=== PATIENT | female | born 1990 | race Caucasian/White ===

== ENCOUNTER 2018-01-21 21:45 | Inpatient (IN) | payer OTHER ==
[~2018-01-21] VITALS: Ht 170.2 cm; Wt 95.0 kg
[2018-01-21 22:37] LABS: CULTURE INDICATED? NO; MICROSCOPIC INDICATED
[2018-01-21] MEDS ORDERED: OXYTOCIN 30U/ 0.9% NaCL 500ML 500 ML IV SCH (22:44)
[2018-01-21] MEDS ORDERED: LACTATED RINGERS 1,000 ML IV SCH ×2 (22:44→23:00)
[2018-01-21] MEDS ORDERED: SODIUM CITRATE/CITRIC ACID 30 ML UDC ONE (22:50)
[2018-01-21] MEDS ORDERED: METOCLOPRAMIDE 5 MG/ML, 2ML ONE (22:50)
[2018-01-21] MEDS ORDERED: OXYTOCIN 30U/ 0.9% NaCL 500ML 500 ML ONE (22:50)
[2018-01-21] MEDS ORDERED: NEWBORN KIT ONE (22:50)
[2018-01-21] MEDS ORDERED: LACTATED RINGERS 1,000 ML IVBOLUS ONE (23:00)
[2018-01-21] MEDS ORDERED: METOCLOPRAMIDE 5 MG/ML, 2ML IV ONE (23:00)
[2018-01-21] MEDS ORDERED: SODIUM CITRATE/CITRIC ACID 30 ML UDC PO ONE (23:00)
[2018-01-21 23:13] LABS: BASOPHILS # (AUTO) 0.02 x10^3/uL (0-0.1); BASOPHILS % (AUTO) 0 % (0-1); EOSINOPHILS # (AUTO) 0.13 x10^3/uL (0-0.4); EOSINOPHILS % (AUTO) 1 % (1-7); LYMPHOCYTES % (AUTO) 30 % (22-44); MD NO; MEAN CORPUSCULAR HGB CONC 34.4 g/dL (32.4-35.8); MEAN CORPUSCULAR VOLUME 90.3 fL (80-100); MEAN PLATELET VOLUME 11.2 fL (7.4-10.4); MONOCYTES % (AUTO) 5 % (2-9); NEUTROPHILS # (AUTO) 5.89 x10^3/uL (1.8-6.8); NEUTROPHILS % (AUTO) 63 % (42-75); PLATELET COUNT 171 x10^3/uL (130-400); RED BLOOD COUNT 3.89 x10^6/uL (3.82-5.3); RED CELL DISTRIBUTION WIDTH 15.4 % (9.6-15.2)
[2018-01-21 23:17] VITALS: BP 143/100
[2018-01-21 23:25] LABS: ALBUMIN 2.7 g/dL (3.4-5.0); ANION GAP 9 mmol/L (5-15); CALCIUM 8.4 mg/dL (8.5-10.1); CHLORIDE 110 mmol/L (98-107)
[2018-01-21] MEDS ORDERED: OXYTOCIN 10 UNITS/ML, 1ML ONE (23:26)
[2018-01-21] MEDS ORDERED: ONDANSETRON 2MG/ML, 2ML ONE (23:26)
[2018-01-21] MEDS ORDERED: CEFAZOLIN 1,000 MG ONE (23:26)
[2018-01-21] MEDS ORDERED: HYDROmorphone 2 MG/ML, 1ML ONE (23:27)
[2018-01-21] MEDS ORDERED: FENTANYL PF 100 MCG/2ML ONE (23:27)
[2018-01-21 23:30] LABS: ALANINE AMINOTRANSFERASE 18 U/L (12-78); ALKALINE PHOSPHATASE 145 U/L (45-117); BILIRUBIN,TOTAL 0.4 mg/dL (0.2-1.0); CREATININE 0.73 mg/dL (0.55-1.02); TOTAL PROTEIN 6.6 g/dL (6.4-8.2)
[2018-01-21 23:32] LABS: BILIRUBIN, DIRECT < 0.1 mg/dL (0.1-0.2)
[2018-01-22] MEDS: LACTATED RINGERS 1,000 ML IV SCH ×6 (00:54→20:54)
[2018-01-22] MEDS: OXYTOCIN 30U/ 0.9% NaCL 500ML 500 ML IV SCH ×3 (00:54→20:54)
[2018-01-22] MEDS ORDERED: MISOPROSTOL 200 MCG TABLET PR PRN (01:00)
[2018-01-22] MEDS ORDERED: BISACODYL 10 MG SUPP PR PRN (01:00)
[2018-01-22] MEDS ORDERED: morphine SULFATE 10 MG/ML, 1ML IVPush PRN ×2 (01:00)
[2018-01-22] MEDS ORDERED: CALCIUM CARBONATE 500 MG TAB.CHEW PO PRN (01:00)
[2018-01-22] MEDS ORDERED: ONDANSETRON 2MG/ML, 2ML IV PRN (01:00)
[2018-01-22] MEDS ORDERED: CARBOPROST TROMETHAMINE 250 MCG/ML, 1ML IM PRN (01:00)
[2018-01-22] MEDS ORDERED: ACETAMINOPHEN 325 MG TABLET PO PRN (01:00)
[2018-01-22] MEDS ORDERED: OXYcodone/APAP 5/325MG TABLET ONE (02:06)
[2018-01-22] MEDS ORDERED: IBUPROFEN 600 MG TABLET ONE (02:07)
[2018-01-22] MEDS: OXYcodone/APAP 5/325MG TABLET PO PRN ×5 (02:08→17:00)
[2018-01-22] MEDS: IBUPROFEN 600 MG TABLET PO PRN ×4 (02:08→19:58)
[2018-01-22 02:30] VITALS: BP 149/88
[2018-01-22 05:15] VITALS: BP 144/94
[2018-01-22] MEDS: SIMETHICONE 80 MG CHEW TAB PO PRN ×2 (05:17→19:57)
[2018-01-22] MEDS: DOCUSATE 100 MG CAPSULE PO PRN (07:40)
[2018-01-22 08:00] VITALS: BP 149/103
[2018-01-22] MEDS: PRENATAL VIT/IRON/FA 1 EACH TABLET PO SCH (09:00)
[2018-01-22 09:05] LABS: BASOPHILS # (AUTO) 0.03 x10^3/uL (0-0.1); BASOPHILS % (AUTO) 0 % (0-1); EOSINOPHILS # (AUTO) 0.03 x10^3/uL (0-0.4); EOSINOPHILS % (AUTO) 0 % (1-7); LYMPHOCYTES # (AUTO) 1.43 x10^3/uL (1-3.4); LYMPHOCYTES % (AUTO) 17 % (22-44); MD NO; MEAN CORPUSCULAR HEMOGLOBIN 30.4 pg (27.0-34.8); MEAN CORPUSCULAR HGB CONC 33.9 g/dL (32.4-35.8); MEAN CORPUSCULAR VOLUME 89.7 fL (80-100); MEAN PLATELET VOLUME 10.6 fL (7.4-10.4); MONOCYTES % (AUTO) 4 % (2-9); NEUTROPHILS # (AUTO) 6.72 x10^3/uL (1.8-6.8); NEUTROPHILS % (AUTO) 79 % (42-75); PLATELET COUNT 144 x10^3/uL (130-400); RED BLOOD COUNT 3.43 x10^6/uL (3.82-5.3)
[2018-01-22 12:00] VITALS: BP 131/88
[2018-01-22 16:00] VITALS: BP 130/89
[2018-01-22 19:45] VITALS: BP 134/87
[2018-01-22] MEDS: OXYcodone/APAP 10/325MG TABLET PO PRN (21:21)
[2018-01-23 00:10] VITALS: BP 135/90
[2018-01-23] MEDS: LACTATED RINGERS 1,000 ML IV SCH ×5 (00:54→16:54)
[2018-01-23] MEDS: IBUPROFEN 600 MG TABLET PO PRN ×4 (02:05→22:58)
[2018-01-23] MEDS: OXYcodone/APAP 5/325MG TABLET PO PRN ×2 (02:05→12:54)
[2018-01-23] MEDS: OXYTOCIN 30U/ 0.9% NaCL 500ML 500 ML IV SCH ×2 (06:54→16:54)
[2018-01-23] MEDS: PRENATAL VIT/IRON/FA 1 EACH TABLET PO SCH (07:25)
[2018-01-23] MEDS: DOCUSATE 100 MG CAPSULE PO PRN ×2 (07:25→21:48)
[2018-01-23] MEDS: OXYcodone/APAP 10/325MG TABLET PO PRN ×3 (07:25→21:48)
[2018-01-23 07:29] VITALS: BP 142/90
[2018-01-23 14:45] VITALS: BP 132/89
[2018-01-23 20:00] VITALS: BP 143/93
[2018-01-24] MEDS: LACTATED RINGERS 1,000 ML IV SCH ×3 (00:54→08:54)
[2018-01-24] MEDS: OXYcodone/APAP 10/325MG TABLET PO PRN ×3 (02:36→10:36)
[2018-01-24] MEDS: OXYTOCIN 30U/ 0.9% NaCL 500ML 500 ML IV SCH (02:54)
[2018-01-24] MEDS: IBUPROFEN 600 MG TABLET PO PRN (06:16)
[2018-01-24] MEDS: PRENATAL VIT/IRON/FA 1 EACH TABLET PO SCH (07:48)
[2018-01-24] MEDS: DOCUSATE 100 MG CAPSULE PO PRN (07:48)
[2018-01-24 08:45] VITALS: BP 147/95
[2018-01-24] MEDS ORDERED: IBUP-1222 PO (09:27)
[2018-01-24] MEDS ORDERED: OXYC-302 PO (09:27)
== END 2018-01-24 11:30 | disposition home or self-care (01) | DRG 766 ==
LOC: LDOP 21:45 → LDIP 22:54 → 2NW 01-22 02:27
PROVIDERS: ADMIT Obstetrics & Gynecology; ATTEND Obstetrics & Gynecology
PROC: 10D00Z1 Extraction of Products of Conception, Low, Open Approach (ICD-10-PCS; principal; 2018-01-21)
DX: O34.211 Maternal care for low transverse scar from previous cesarean delivery (principal); Z37.0 Single live birth; Z3A.38 38 weeks gestation of pregnancy; Q65.89 Other specified congenital deformities of hip; O13.4 Gestational [pregnancy-induced] hypertension without significant proteinuria, complicating childbirth; E28.2 Polycystic ovarian syndrome; O75.89 Other specified complications of labor and delivery
CPT/HCPCS: 36415; 80053; 81001; 82248; 82570; 84156; 84550; 85025; 86850; 86900; J0690; J1170; J2405; J3010; J2270; J2590; J2765; J7120

== ENCOUNTER 2019-07-23 13:40 | Emergency (ER) | payer OTHER ==
[~2019-07-23] VITALS: Ht 170.2 cm; Wt 86.8 kg
[~2019-07-23 13:40] MED LIST: IBUP-1222 PO; OXYC-302 PO
[2019-07-23] MEDS ORDERED: ACETAMINOPHEN 500 MG TABLET PO ONE (14:30)
--- NOTE | 2019-07-23 14:30 | NUR ---
ASSUMED CARE OF PT AT THIS TIME. THIS IS A 29 YO FEMALE C/O BLEEDING X 2 DAYS, 1 PAD/HR TODAY. PT REPORTS SHE HAD HER LMP ON 07/06/19 AND IS "VERY REGULAR" TYPICALLY. PT SLIGHTLY TENDER ACROSS LOWER ABD. PT DENIES N/V/D. PT DENIES PAINFUL URINATION. PT UP TO RESTROOM AND BACK TO [facility], MARCK NOTED. URINE SAMPLE OBTAINED AND SENT TO LAB. PT AO X 4. SKIN PWD. RESP EVEN AND UNLABORED. PT ON CONT BP AND O2 MONITORS. AT BEDSIDE. CALL LIGHT WITHIN REACH. WILL CONT TO MONITOR PT.
[2019-07-23] MEDS ORDERED: ACETAMINOPHEN 500 MG TABLET ONE (14:57)
--- NOTE | 2019-07-23 15:05 | NUR ---
PT BACK FROM IMAGING. NAD NOTED. SKIN PWD. RESP EVEN AND UNLABORED. PT MEDICATED ORDERED FOR PAIN. PT AWARE THAT WE ARE WAITING FOR LAB/IMAGING RESULTS. AT BEDSIDE. PT DENIES OTHER NEEDS. CALL LIGHT WITHIN REACH. WILL CONT TO MONITOR PT.
[2019-07-23 15:14] LABS: CULTURE INDICATED? YES; MICROSCOPIC INDICATED
[2019-07-23 15:24] LABS: ALBUMIN 3.8 g/dL (3.4-5.0); ANION GAP 7 mmol/L (5-15); CALCIUM 8.6 mg/dL (8.5-10.1); CHLORIDE 108 mmol/L (98-107)
[2019-07-23 15:26] LABS: BASOPHILS # (AUTO) 0.03 x10^3/uL (0-0.1); BASOPHILS % (AUTO) 1 % (0-1); EOSINOPHILS # (AUTO) 0.18 x10^3/uL (0-0.4); EOSINOPHILS % (AUTO) 3 % (1-7); LYMPHOCYTES # (AUTO) 1.83 x10^3/uL (1-3.4); LYMPHOCYTES % (AUTO) 31 % (22-44); MD NO; MEAN CORPUSCULAR HGB CONC 33.6 g/dL (32.4-35.8); MEAN CORPUSCULAR VOLUME 89.2 fL (80-100); MEAN PLATELET VOLUME 10.2 fL (7.4-10.4); MONOCYTES # (AUTO) 0.26 x10^3/uL (0.2-0.8); MONOCYTES % (AUTO) 4 % (2-9); NEUTROPHILS # (AUTO) 3.64 x10^3/uL (1.8-6.8); NEUTROPHILS % (AUTO) 61 % (42-75); PLATELET COUNT 238 x10^3/uL (130-400); RED BLOOD COUNT 4.32 x10^6/uL (3.82-5.3); RED CELL DISTRIBUTION WIDTH 13.2 % (9.6-15.2)
[2019-07-23 15:29] LABS: CREATININE 1.01 mg/dL (0.55-1.02)
--- NOTE | 2019-07-23 16:05 | NUR ---
PT CURRENTLY RESTING ON GURNEY. NAD NOTED. SKIN PWD. RESP EVEN AND UNLABORED. PT CURRENTLY DENIES PAIN/NEEDS. PT ON CONT BP AND O2 MONITORS. AT BEDSIDE. PT AND AWARE WE ARE WAITING FOR LAB/IMAGING RESULTS. CALL LIGHT WITHIN REACH. WILL CONT TO MONITOR PT.
--- NOTE | 2019-07-23 17:37 | NUR ---
SAHRA SOLER WAS BEDSIDE FOR CHAPERONED PELVIC EXAM AND TO DISCUSS RESULTS/POC. PT AND PT'S VERBALIZE UNDERSTANDING AND WILL F/U WITH MARRIAGE PERFORMER. PT AO X 4. SKIN PWD. RESP EVEN AND UNLABORED. CALL LIGHT WITHIN REACH. WILL CONT TO MONITOR PT.
[2019-07-23 17:38] VITALS: BP 114/80
== END 2019-07-23 17:48 | disposition home or self-care (01) ==
LOC: ED 15:12
DX: N93.8 Other specified abnormal uterine and vaginal bleeding (principal)
CPT/HCPCS: 36415; 76830; 80048; 81001; 82040; 84703; 85025; 87086; 99284

== ENCOUNTER 2020-02-21 09:55 | Outpatient (CLI) | payer OTHER ==
[2020-02-21 09:51] VITALS: BP 124/86
[2020-02-21 10:49] LABS: BASOPHILS # (AUTO) 0.02 x10^3/uL (0-0.1); BASOPHILS % (AUTO) 0 % (0-1); EOSINOPHILS # (AUTO) 0.11 x10^3/uL (0-0.4); EOSINOPHILS % (AUTO) 2 % (1-7); LYMPHOCYTES # (AUTO) 1.23 x10^3/uL (1-3.4); LYMPHOCYTES % (AUTO) 21 % (22-44); MD NO; MEAN CORPUSCULAR HGB CONC 32.9 g/dL (32.4-35.8); MEAN CORPUSCULAR VOLUME 91.1 fL (80-100); MEAN PLATELET VOLUME 9.5 fL (7.4-10.4); MONOCYTES # (AUTO) 0.31 x10^3/uL (0.2-0.8); MONOCYTES % (AUTO) 5 % (2-9); NEUTROPHILS # (AUTO) 4.37 x10^3/uL (1.8-6.8); NEUTROPHILS % (AUTO) 72 % (42-75); PLATELET COUNT 175 x10^3/uL (130-400); RED BLOOD COUNT 3.52 x10^6/uL (3.82-5.3); RED CELL DISTRIBUTION WIDTH 14.1 % (9.6-15.2)
[2020-02-21 10:51] LABS: ALANINE AMINOTRANSFERASE 16 U/L (12-78); ALBUMIN 2.7 g/dL (3.4-5.0); ANION GAP 5 mmol/L (5-15); CALCIUM 8.3 mg/dL (8.5-10.1); CHLORIDE 110 mmol/L (98-107); CREATININE 0.64 mg/dL (0.55-1.02)
[2020-02-21 10:53] LABS: ALKALINE PHOSPHATASE 64 U/L (45-117); BILIRUBIN,TOTAL 0.2 mg/dL (0.2-1.0); TOTAL PROTEIN 6.1 g/dL (6.4-8.2)
== END 2020-02-21 11:37 | disposition home or self-care (01) ==
LOC: LDOP 09:55
PROVIDERS: ATTEND Obstetrics & Gynecology
DX: O26.893 Other specified pregnancy related conditions, third trimester (principal); Z3A.32 32 weeks gestation of pregnancy
CPT/HCPCS: 36415; 59025; 80053; 85025

== ENCOUNTER 2020-02-25 09:58 | Outpatient (CLI) | payer OTHER ==
[~2020-02-25] VITALS: Ht 170.2 cm; Wt 95.5 kg
[2020-02-25] MEDS ORDERED: PREN1TAB60 PO (10:02)
[2020-02-25] MEDS ORDERED: LABE100T6 PO (10:02)
[2020-02-25] MEDS ORDERED: ASPI-496 PO (10:02)
[2020-02-25] MEDS ORDERED: FERR324T5 PO (10:03)
[2020-02-25] MEDS ORDERED: ASCO500C10 PO (10:03)
[2020-02-25 10:06] VITALS: BP 111/75
[2020-02-25] MEDS ORDERED: BETAMETHASONE 6 MG/ML, 5ML IM ONE ×2 (10:28→10:30)
== END 2020-02-25 12:46 | disposition home or self-care (01) ==
LOC: LDOP 09:58
PROVIDERS: ATTEND Obstetrics & Gynecology
DX: O26.893 Other specified pregnancy related conditions, third trimester (principal); O13.3 Gestational [pregnancy-induced] hypertension without significant proteinuria, third trimester; Z3A.32 32 weeks gestation of pregnancy
CPT/HCPCS: 59025; 76819; 96372; J0702

== ENCOUNTER 2020-02-26 10:05 | Outpatient (CLI) | payer OTHER ==
[~2020-02-26] VITALS: Ht 170.2 cm; Wt 95.0 kg
[~2020-02-26 10:05] MED LIST changes: +ASCO500C10 PO; +ASPI-496 PO; +FERR324T5 PO; +LABE100T6 PO; +PREN1TAB60 PO
[2020-02-26 10:11] VITALS: BP 118/78
[2020-02-26] MEDS ORDERED: BETAMETHASONE 6 MG/ML, 5ML IM ONE (10:30)
== END 2020-02-26 11:00 | disposition home or self-care (01) ==
LOC: LDOP 10:05
PROVIDERS: ATTEND Obstetrics & Gynecology
DX: O26.893 Other specified pregnancy related conditions, third trimester (principal); O13.3 Gestational [pregnancy-induced] hypertension without significant proteinuria, third trimester; Z3A.32 32 weeks gestation of pregnancy
CPT/HCPCS: 59025; 96372; J0702

== ENCOUNTER 2020-03-06 19:43 | Outpatient (CLI) | payer OTHER ==
[~2020-03-06] VITALS: Ht 170.2 cm; Wt 95.5 kg
[2020-03-06 20:00] VITALS: BP 131/91
[2020-03-06 20:21] LABS: MICROSCOPIC NOT IND
[2020-03-06 20:32] LABS: CREATININE,URINE RANDOM 95.8 mg/dL
[2020-03-06 20:40] LABS: BASOPHILS # (AUTO) 0.02 x10^3/uL (0-0.1); BASOPHILS % (AUTO) 0 % (0-1); EOSINOPHILS # (AUTO) 0.08 x10^3/uL (0-0.4); EOSINOPHILS % (AUTO) 1 % (1-7); LYMPHOCYTES # (AUTO) 1.57 x10^3/uL (1-3.4); LYMPHOCYTES % (AUTO) 22 % (22-44); MD NO; MEAN CORPUSCULAR HEMOGLOBIN 29.5 pg (27.0-34.8); MEAN CORPUSCULAR HGB CONC 31.9 g/dL (32.4-35.8); MEAN CORPUSCULAR VOLUME 92.3 fL (80-100); MONOCYTES # (AUTO) 0.34 x10^3/uL (0.2-0.8); MONOCYTES % (AUTO) 5 % (2-9); NEUTROPHILS # (AUTO) 5.16 x10^3/uL (1.8-6.8); NEUTROPHILS % (AUTO) 72 % (42-75); PLATELET COUNT 177 x10^3/uL (130-400); RED CELL DISTRIBUTION WIDTH 15.1 % (9.6-15.2)
[2020-03-06 20:50] LABS: ALANINE AMINOTRANSFERASE 17 U/L (12-78); ALBUMIN 2.7 g/dL (3.4-5.0); ANION GAP 9 mmol/L (5-15); CALCIUM 9.1 mg/dL (8.5-10.1); CHLORIDE 109 mmol/L (98-107); CREATININE 0.76 mg/dL (0.55-1.02)
[2020-03-06 20:52] LABS: ALKALINE PHOSPHATASE 64 U/L (45-117); BILIRUBIN,TOTAL 0.3 mg/dL (0.2-1.0); TOTAL PROTEIN 6.6 g/dL (6.4-8.2)
== END 2020-03-06 21:36 | disposition home or self-care (01) ==
LOC: LDOP 19:43
PROVIDERS: ATTEND Obstetrics & Gynecology
DX: O13.9 Gestational [pregnancy-induced] hypertension without significant proteinuria, unspecified trimester (principal); Z3A.34 34 weeks gestation of pregnancy
CPT/HCPCS: 36415; 59025; 80053; 81003; 82570; 84156; 84550; 85025; 87086

== ENCOUNTER 2020-04-12 05:29 | Inpatient (IN) | payer OTHER ==
[~2020-04-12] VITALS: Ht 170.2 cm; Wt 96.8 kg
[2020-04-12] MEDS ORDERED: OXYTOCIN 30U/ 0.9% NaCL 500ML 500 ML ONE (05:46)
[2020-04-12] MEDS ORDERED: METOCLOPRAMIDE 5 MG/ML, 2ML ONE (05:47)
[2020-04-12] MEDS ORDERED: NEWBORN KIT ONE (05:47)
[2020-04-12 05:51] VITALS: BP 132/86
[2020-04-12] MEDS ORDERED: METOCLOPRAMIDE 5 MG/ML, 2ML IV ONE (06:00)
[2020-04-12] MEDS ORDERED: SODIUM CITRATE/CITRIC ACID 30 ML UDC PO ONE (06:00)
[2020-04-12] MEDS ORDERED: LACTATED RINGERS 1,000 ML IVBOLUS ONE (06:00)
[2020-04-12] MEDS ORDERED: LACTATED RINGERS 1,000 ML IV SCH (06:00)
[2020-04-12 06:10] LABS: BASOPHILS % (AUTO) 1 % (0-1); EOSINOPHILS % (AUTO) 2 % (1-7); LYMPHOCYTES % (AUTO) 25 % (22-44); MEAN CORPUSCULAR HEMOGLOBIN 30.5 pg (27.0-34.8); MEAN PLATELET VOLUME 9.7 fL (7.4-10.4); MONOCYTES % (AUTO) 4 % (2-9); NEUTROPHILS % (AUTO) 68 % (42-75); PLATELET COUNT 175 x10^3/uL (130-400); RED BLOOD COUNT 3.75 x10^6/uL (3.82-5.3); RED CELL DISTRIBUTION WIDTH 14.8 % (9.6-15.2)
[2020-04-12 06:45] LABS: MD NO
[2020-04-12] MEDS ORDERED: CEFAZOLIN 1,000 MG ONE (07:30)
[2020-04-12] MEDS ORDERED: FENTANYL PF 100 MCG/2ML ONE (07:31)
[2020-04-12] MEDS ORDERED: EPHEDRINE 50 MG/ML, 1ML ONE (07:31)
[2020-04-12] MEDS ORDERED: EPINEPHRINE 1 MG/ML, 1ML ONE (07:31)
[2020-04-12] MEDS ORDERED: PHENYLEPHRINE 10 MG/ML ONE (08:21)
[2020-04-12] MEDS ORDERED: DIPHENHYDRAMINE 50 MG/ML, 1ML ONE ×2 (08:36)
[2020-04-12] MEDS ORDERED: OXYcodone/APAP 5/325MG TABLET PO PRN (09:30)
[2020-04-12] MEDS ORDERED: CALCIUM CARBONATE 500 MG TAB.CHEW PO PRN (09:30)
[2020-04-12] MEDS: LACTATED RINGERS 1,000 ML IV SCH ×4 (09:30→19:30)
[2020-04-12] MEDS ORDERED: LABETALOL 100 MG TABLET PO PRN (09:30)
[2020-04-12] MEDS ORDERED: MISOPROSTOL 200 MCG TABLET PR PRN (09:30)
[2020-04-12] MEDS ORDERED: ONDANSETRON 2MG/ML, 2ML IV PRN (09:30)
[2020-04-12] MEDS ORDERED: ACETAMINOPHEN 325 MG TABLET PO PRN (09:30)
[2020-04-12] MEDS ORDERED: CARBOPROST TROMETHAMINE 250 MCG/ML, 1ML IM PRN (09:30)
[2020-04-12] MEDS: OXYTOCIN 30U/ 0.9% NaCL 500ML 500 ML IV SCH ×2 (09:53→19:30)
[2020-04-12 11:00] VITALS: BP 129/86
[2020-04-12] MEDS: SIMETHICONE 80 MG CHEW TAB PO PRN ×2 (11:32→19:47)
[2020-04-12] MEDS: OXYcodone/APAP 5/325MG TABLET PO PRN ×4 (11:33→23:46)
[2020-04-12] MEDS: MORPHINE SULFATE 4 MG/ML, 1ML IVPush PRN ×2 (12:47→20:31)
[2020-04-12] MEDS: morphine SULFATE 10 MG/ML, 1ML IVPush PRN ×2 (13:27→16:48)
[2020-04-12 15:14] VITALS: BP 150/98
[2020-04-12 16:45] LABS: BASOPHILS % (AUTO) 1 % (0-1); EOSINOPHILS % (AUTO) 1 % (1-7); LYMPHOCYTES % (AUTO) 19 % (22-44); MEAN CORPUSCULAR HEMOGLOBIN 29.9 pg (27.0-34.8); MEAN CORPUSCULAR HGB CONC 33.1 g/dL (32.4-35.8); MEAN PLATELET VOLUME 9.7 fL (7.4-10.4); MONOCYTES % (AUTO) 4 % (2-9); NEUTROPHILS % (AUTO) 76 % (42-75); PLATELET COUNT 138 x10^3/uL (130-400); RED BLOOD COUNT 4.03 x10^6/uL (3.82-5.3); RED CELL DISTRIBUTION WIDTH 14.5 % (9.6-15.2)
[2020-04-12 16:52] LABS: MD NO
[2020-04-12 19:45] VITALS: BP 135/93
[2020-04-12] MEDS: DOCUSATE 100 MG CAPSULE PO PRN (19:47)
[2020-04-12 23:47] VITALS: BP 133/89
[2020-04-13] MEDS: LACTATED RINGERS 1,000 ML IV SCH ×5 (01:30→17:30)
[2020-04-13] MEDS: OXYcodone/APAP 5/325MG TABLET PO PRN ×5 (03:45→21:27)
[2020-04-13] MEDS: SIMETHICONE 80 MG CHEW TAB PO PRN ×3 (03:45→19:22)
[2020-04-13 03:49] VITALS: BP 133/88
[2020-04-13] MEDS: IBUPROFEN 600 MG TABLET PO PRN ×3 (05:12→17:36)
[2020-04-13] MEDS: OXYTOCIN 30U/ 0.9% NaCL 500ML 500 ML IV SCH ×2 (05:30→15:30)
[2020-04-13] MEDS: PRENATAL VIT/IRON/FA 1 EACH TABLET PO SCH (07:49)
[2020-04-13] MEDS: DOCUSATE 100 MG CAPSULE PO PRN ×2 (07:49→19:22)
[2020-04-13 07:59] VITALS: BP 128/89
[2020-04-13 19:15] VITALS: BP 143/93
[2020-04-14] MEDS: SIMETHICONE 80 MG CHEW TAB PO PRN ×2 (01:25→08:27)
[2020-04-14] MEDS: OXYcodone/APAP 5/325MG TABLET PO PRN ×4 (01:25→14:01)
[2020-04-14] MEDS: IBUPROFEN 600 MG TABLET PO PRN ×3 (01:25→14:18)
[2020-04-14 01:30] VITALS: BP 147/97
[2020-04-14] MEDS: LACTATED RINGERS 1,000 ML IV SCH ×4 (01:30→11:30)
[2020-04-14] MEDS: OXYTOCIN 30U/ 0.9% NaCL 500ML 500 ML IV SCH ×2 (01:30→11:30)
[2020-04-14 08:15] VITALS: BP 137/91
[2020-04-14] MEDS: PRENATAL VIT/IRON/FA 1 EACH TABLET PO SCH (08:27)
[2020-04-14] MEDS: DOCUSATE 100 MG CAPSULE PO PRN (08:27)
[2020-04-14] MEDS ORDERED: IBUP-1222 PO (08:36)
[2020-04-14] MEDS ORDERED: OXYC-302 PO (08:36)
[2020-04-14 12:00] VITALS: BP 135/91
== END 2020-04-14 14:15 | disposition home or self-care (01) | DRG 785 ==
LOC: LDIP 05:29 → 2NW 11:11
PROVIDERS: ADMIT Obstetrics & Gynecology; ATTEND Obstetrics & Gynecology
PROC: 0UB70ZZ Excision of Bilateral Fallopian Tubes, Open Approach (ICD-10-PCS; principal; 2020-04-12)
PROC: 10D00Z1 Extraction of Products of Conception, Low, Open Approach (ICD-10-PCS; 2020-04-12)
DX: O34.211 Maternal care for low transverse scar from previous cesarean delivery (principal); O13.4 Gestational [pregnancy-induced] hypertension without significant proteinuria, complicating childbirth; O69.81X0 Labor and delivery complicated by cord around neck, without compression, not applicable or unspecified; O99.52 Diseases of the respiratory system complicating childbirth; J45.909 Unspecified asthma, uncomplicated; H81.09 Meniere's disease, unspecified ear; Z30.2 Encounter for sterilization; Z37.0 Single live birth; Q65.89 Other specified congenital deformities of hip; Z3A.39 39 weeks gestation of pregnancy; Z80.3 Family history of malignant neoplasm of breast; Z80.41 Family history of malignant neoplasm of ovary; Z91.040 Latex allergy status; Z79.82 Long term (current) use of aspirin
CPT/HCPCS: 36415; 85025; 86592; 86850; 86900; 87635; 88302; G0378; J0171; J0690; J3010; J1200; J2270; J2370; J2590; J2765; J7120